=== PATIENT | female | born 1980 | race Hispanic/Latino ===

== ENCOUNTER 2022-05-31 18:49 | Emergency (ER) | payer SELFPAY ==
[2022-05-31 19:08] VITALS: BP 135/65
[2022-05-31 19:15] VITALS: BP 136/81
[2022-05-31 19:30] VITALS: BP 130/73
[2022-05-31 19:45] VITALS: BP 128/78
[2022-05-31] MEDS ORDERED: KEFLEX500 MG PO (19:55)
[2022-05-31 20:01] VITALS: BP 130/56
[2022-05-31 20:15] VITALS: BP 131/74
== END 2022-05-31 20:35 | disposition home or self-care (01) | DRG 605 ==
LOC: ED 18:49
PROC: 0HQMXZZ Repair Right Foot Skin, External Approach (ICD-10-PCS; principal; 2022-05-31)
DX: S91.311A Laceration without foreign body, right foot, initial encounter (principal); W26.8XXA Contact with other sharp object(s), not elsewhere classified, initial encounter; Y93.89 Activity, other specified; Y92.009 Unspecified place in unspecified non-institutional (private) residence as the place of occurrence of the external cause

== ENCOUNTER 2022-06-15 18:12 | Emergency (ER) | payer SELFPAY ==
[~2022-06-15] VITALS: Ht 154.9 cm; Wt 79.5 kg
[~2022-06-15 18:12] MED LIST: KEFLEX500 MG PO
[2022-06-15 18:28] VITALS: BP 134/75
== END 2022-06-15 19:15 | disposition home or self-care (01) | DRG 950 ==
LOC: ED 18:12
DX: S91.311D Laceration without foreign body, right foot, subsequent encounter (principal); X58.XXXD Exposure to other specified factors, subsequent encounter